=== PATIENT | female | born 1990 | race Caucasian/White ===

== ENCOUNTER 2019-05-03 23:48 | Emergency (ER) | payer SELFPAY ==
[~2019-05-03] VITALS: Ht 170.2 cm; Wt 78.7 kg
[~2019-05-03 23:48] MED LIST: ACET325T33 PO; CIPR-193 PO; IBUP-1561 PO
[2019-05-03 23:51] VITALS: Ht 170.2 cm; Wt 78.7 kg
[2019-05-04] MEDS ORDERED: morphine 2 MG INJ IV STA (00:56)
[2019-05-04] MEDS ORDERED: KETOROLAC 15 MG INJ IV STA (00:56)
[2019-05-04] MEDS ORDERED: SOD CHLORIDE 0.9% 500 ML IV STA (00:56)
[2019-05-04] MEDS ORDERED: ONDANSETRON 4 MG INJ IV STA (00:56)
--- NOTE | 2019-05-04 00:57 | ERD ---
ER Documentation Chief Complaint Chief Complaint ABD PAIN; NO OTHER GI S/S XTODAY HPI 28-year-old female, presents the emergency department, complaining of right lower quadrant abdominal pain that started this morning. The pain is constant, dull, 8/10, associated with subjective fever, nausea and decreased appetite. LMP 04/23/2019. G2, P2. ROS All systems reviewed and are negative except as per history of present illness. Allergies Allergies: Coded Allergies: No Known Allergy (Unverified , 05/04/19) PMhx/Soc Medical and Surgical Hx: pt denies Medical Hx, pt denies Surgical Hx Hx Alcohol Use: No Hx Substance Use: No Hx Tobacco Use: No Smoking Status: Never smoker FmHx Family History: No diabetes, No coronary disease Physical Exam Vitals Vital Signs Date Temp Pulse Resp B/P (MAP) Pulse Ox O2 O2 Flow FiO2 Time Delivery Rate 05/03/19 99.4 75 18 130/85 99 23:51 (100) Physical Exam Const: No acute distress Head: Atraumatic Eyes: Normal Conjunctiva ENT: Normal External Ears, Nose and Mouth. Neck: Full range of motion. No meningismus. Resp: Clear to auscultation bilaterally Cardio: Regular rate and rhythm, no murmurs Abd: Soft, non tender, non distended. Normal bowel sounds Skin: No petechiae or rashes Back: No midline or flank tenderness Ext: No cyanosis, or edema Neur: Awake and alert Psych: Normal Mood and Affect Result Diagram: 05/04/19 0202 05/04/19 0202 Results 24 hrs Laboratory Tests Test 05/04/19 00:11 05/04/19 02:02 05/04/19 02:45 POC Beta HCG, Qualitative NEGATIVE White Blood Count 13.4 10^3/ul Red Blood Count 4.45 10^6/ul Hemoglobin 12.5 g/dl Hematocrit 38.2 % Mean Corpuscular Volume 85.8 fl Mean Corpuscular Hemoglobin 28.1 pg Mean Corpuscular 32.7 g/dl Hemoglobin Concent Red Cell Distribution Width 12.6 % Platelet Count 353 10^3/UL Mean Platelet Volume 8.4 fl Immature Granulocytes % 0.600 % Neutrophils % 80.0 % Lymphocytes % 12.1 % Monocytes % 6.6 % Eosinophils % 0.4 % Basophils % 0.3 % Nucleated Red Blood Cells % 0.0 /100WBC Immature Granulocytes # 0.080 10^3/ul Neutrophils # 10.7 10^3/ul Lymphocytes # 1.6 10^3/ul Monocytes # 0.9 10^3/ul Eosinophils # 0.1 10^3/ul Basophils # 0.0 10^3/ul Nucleated Red Blood Cells # 0.0 10^3/ul Sodium Level 140 mmol/L Potassium Level 3.6 mmol/L Chloride Level 106 mmol/L Carbon Dioxide Level 25 mmol/L Anion Gap 9 Blood Urea Nitrogen 14 mg/dl Creatinine 0.81 mg/dl Est Glomerular Filtrat > 60 mL/min Rate mL/min Glucose Level 113 mg/dl Calcium Level 9.4 mg/dl Total Bilirubin 0.7 mg/dl Direct Bilirubin 0.00 mg/dl Indirect Bilirubin 0.7 mg/dl Aspartate Amino Transf (AST/SGOT) 26 IU/L Alanine 23 IU/L Aminotransferase (ALT/SGPT) Alkaline Phosphatase 100 IU/L Total Protein 8.7 g/dl Albumin 4.4 g/dl Globulin 4.30 g/dl Albumin/Globulin Ratio 1.02 Lipase 69 U/L Urine Color YELLOW Urine Clarity CLOUDY Urine pH 5.0 Urine Specific Browning 1.018 Urine Ketones NEGATIVE mg/dL Urine Nitrite NEGATIVE mg/dL Urine Bilirubin NEGATIVE mg/dL Urine Urobilinogen NEGATIVE mg/dL Urine Leukocyte Esterase TRACE Macie/ul Urine Microscopic RBC > 182 /HPF Urine Microscopic WBC 21 /HPF Urine Squamous Epithelial Cells FEW /HPF Urine Bacteria FEW /HPF Urine Mucus FEW /HPF Urine Hemoglobin 3+ mg/dL Urine Glucose NEGATIVE mg/dL Urine Total Protein 1+ mg/dl Current Medications Medications Dose Sig/Jenny Start Time Status Last (Trade) Ordered Route PRN Stop Time Admin Dose Reason Admin Sodium 500 ml @ Q1H STAT 05/04/19 DC 05/04/19 Chloride 500 mls/hr IV 00:56 05/04/19 02:06 01:55 Morphine 2 mg ONCE STAT 05/04/19 DC 05/04/19 Sulfate IV 00:56 05/04/19 02:02 (morphine) 01:00 Ondansetron 4 mg ONCE STAT 05/04/19 DC 05/04/19 HCl (Zofran IV 00:56 05/04/19 02:01 Inj) 01:00 Ketorolac 15 mg ONCE STAT 05/04/19 DC 05/04/19 Tromethamine IV 00:56 05/04/19 02:01 (Toradol) 01:00 Ceftriaxone 50 ml @ ONCE ONCE 05/04/19 05/04/19 Sodium 100 mls/hr IVPB 03:30 05/04/19 03:38 03:59 Patient: OLEG ANDERSEN : 1990 Age: 28 Sex: F MR #: [id number] DOS: 05/04/19 0056 Ordering MD: JUDITH FONTENOT MD Location: [facility] Room/Bed: PROCEDURE: CT Abdomen and pelvis without contrast. CLINICAL INDICATION: Abdominal pain. TECHNIQUE: CT scan of the abdomen and pelvis was performed on a multi- detector high-resolution CT scanner. Contiguous axial images were obtained from the lung bases to the ischial tuberosities without intravenous contrast. Coronal and sagittal reformatted images were also obtained. Images were reviewed on the PACS workstation. DICOM images are available. One or more of the following dose reduction techniques were used: - Automated exposure control. - Adjustment of the mA and/or kV according to patient size. - Use of iterative reconstruction technique. Exam CTD/vol = 11.36 mGy. Total exam DLP = 648.91 mGy-cm. COMPARISON: None. FINDINGS: Evaluation of the lung bases demonstrates no pleural or parenchymal disease. Abdomen: The liver is normal in size. There is no focal mass or dilatation of the biliary tree. The gallbladder is not distended. The spleen, pancreas and bilateral adrenal glands are within normal limits. Bilateral kidneys are normal in size with no contour deforming mass identified. There is no radiopaque renal or ureteral calculus identified. There is mild right-sided hydronephrosis with perinephric stranding and fluid. There is no retroperitoneal adenopathy. The abdominal aorta is of normal caliber. There is no abnormal bowel wall thickening or distension. There is no bowel obstruction or free air. A normal appendix is identified. There is no diverticulosis or diverticulitis. There is no ascites. Pelvis: The bladder is unremarkable. The uterus and adnexa are within normal limits. There is no significant pelvic adenopathy or free fluid. Evaluation of the osseous structures demonstrates no suspicious lytic or blastic lesion. IMPRESSION: Mild right-sided hydronephrosis with perinephric stranding and fluid could suggest a recently passed stone or pyelonephritis. Clinical correlation is needed. There is no radiopaque renal or ureteral calculus identified at this time. Procedures/MDM Differential diagnosis include but not limited to: UTI, colitis, gastroenteritis, kidney stones, irritable bowel syndrome, inflammatory bowel syndrome, malabsorption syndrome, cholelithiasis, food intolerance, medication side effect, pancreatitis, diverticulitis, bowel obstruction. Low suspicion for acute abdomen Physical examination and clinical presentation consistent most likely with uncomplicated pyelonephritis. During the ED course the patient remained stable, no new complaints. Results and clinical impression discussed with patient who agrees with management. The patient is stable to be treated outpatient and will be discharged home, some side effects of prescribed medications (headache, rash, nausea, vomiting, diarrhea, drowsiness, habituation, bleeding, hypertension, interactions with other medications) were reviewed. The patient was instructed to follow up with the primary care provider in the next 48h. If symptoms persist, worsen or new symptoms develop, then patient should return to the ED immediately. Instructions explained and given directly by me to the patient with acknowledgment and demonstrated understanding. Disclaimer: Inadvertent spelling and grammatical errors are likely due to EHR/dictation software use and do not reflect on the overall quality of patient care. Also, please note that the electronic time recorded on this note does not necessarily reflect the actual time of the patient encounter. Departure Diagnosis: Primary Impression: UTI (urinary tract infection) Condition: Stable Patient Instructions: Understanding Urinary Tract Infections (UTIs) JUDITH FONTENOT MD May 04, 2019 00:57
[2019-05-04] MEDS ORDERED: CEFTRIAXONE 1 GM/50 ML (PMX) 50 ML IVPB ONE (03:30)
[2019-05-04 04:21] VITALS: BP 108/58; PULSE 77; RESP 20
== END 2019-05-04 04:23 | disposition home or self-care (01) ==
LOC: FTE 23:48
DX: N39.0 Urinary tract infection, site not specified (principal)
CPT/HCPCS: 36415; 74176; 80053; 81001; 81025; 83690; 85025; 87086; 96361; 96365; 96375; 99285; J0696; J1885; J2270; J2405; J7040